=== PATIENT | female | born 1940 | race Asian ===

== ENCOUNTER 2016-11-11 19:05 | Emergency (ER) | payer OTHER ==
[2016-11-11 20:10] LABS: RED CELL DISTRIBUTION WIDTH 14.3 % (11.5-14.5)
[2016-11-11 20:13] LABS: PLATELET COUNT 481 x10^3mcL (130-400)
[2016-11-11 20:19] LABS: CALCIUM 9.6 mg/dL (8.5-10.1); CHLORIDE SERUM 98 mmol/L (98-107); CREATININE SERUM 0.6 mg/dL (0.6-1.0); GLUCOSE SERUM 241 mg/dL (74-106); POTASSIUM SERUM 4.1 mmol/L (3.5-5.1); SODIUM SERUM 135 mmol/L (136-145)
[2016-11-12 02:16] VITALS: BP 104/53
== END 2016-11-12 02:16 | disposition home or self-care (01) ==
LOC: ED 19:05
PROVIDERS: Emergency Medicine
DX: N39.0 Urinary tract infection, site not specified (principal); I10 Essential (primary) hypertension; Z79.899 Other long term (current) drug therapy; Z86.73 Personal history of transient ischemic attack (TIA), and cerebral infarction without residual deficits
CPT/HCPCS: 83880; J0696

== ENCOUNTER 2018-02-22 19:49 | Emergency (ER) | payer OTHER ==
[~2018-02-22] VITALS: Ht 152.4 cm; Wt 47.6 kg
[2018-02-22 19:53] VITALS: Ht 152.4 cm; Wt 47.6 kg
[2018-02-22] MEDS ORDERED: GOOD SENSE OMEP20 MG (23:09)
[2018-02-22] MEDS ORDERED: LIPI10 (23:10)
[2018-02-22] MEDS ORDERED: ELIQUIS5 MG (23:10)
[2018-02-22] MEDS ORDERED: AMLODIPINE BESY10 M2 (23:11)
[2018-02-22] MEDS ORDERED: LANTUS SOLOS100 U/M1 SC (23:12)
[2018-02-22 23:18] LABS: BASOPHIL % 0.1 % (0-2); PLATELET COUNT 340 x10^3mcL (130-400); RED CELL DISTRIBUTION WIDTH 15.5 % (11.5-14.5)
[2018-02-22 23:30] LABS: CALCIUM 9.2 mg/dL (8.5-10.1); CARBON DIOXIDE 24.5 mmol/L (21-32); CHLORIDE SERUM 102 mmol/L (98-107); CREATININE SERUM 0.5 mg/dL (0.6-1.0); GLUCOSE SERUM 183 mg/dL (74-106); SODIUM SERUM 137 mmol/L (136-145)
[2018-02-22 23:39] LABS: ALBUMIN 3.5 g/dL (3.4-5.0); ALKALINE PHOSPHATASE 108 U/L (46-116); ALT/SGPT 32 U/L (14-59); AMYLASE 55 U/L (25-115); AST/SGOT 28 U/L (15-37); BILIRUBIN TOTAL 0.8 mg/dL (0.20-1.00); HDL CHOLESTEROL 47 mg/dL (40-60); LIPASE 163 IU/L (73-393); T4(THYROXINE) 10.5 ug/dL (4.7-13.3); TOTAL PROTEIN, SERUM 7.7 g/dL (6.4-8.2)
[2018-02-22 23:47] LABS: CHOLESTEROL 133 mg/dL (<200); POTASSIUM SERUM 4.3 mmol/L (3.5-5.1)
[2018-02-23 00:29] LABS: UA SPECIFIC GRAVITY <=1.005 (1.005-1.035); microscopic required? YES; urine erythrocyte 2+ (NEGATIVE)
[2018-02-23 03:00] VITALS: BP 134/66
== END 2018-02-23 03:00 | disposition home or self-care (01) ==
LOC: ED 19:49
PROVIDERS: Emergency Medicine
DX: R19.7 Diarrhea, unspecified (principal); N39.0 Urinary tract infection, site not specified; E11.9 Type 2 diabetes mellitus without complications; I10 Essential (primary) hypertension; Z86.73 Personal history of transient ischemic attack (TIA), and cerebral infarction without residual deficits
CPT/HCPCS: 36415; J7030; J7040